=== PATIENT | female | born 1965 | race Hispanic/Latino ===

== ENCOUNTER 2023-12-22 08:11 | Day surgery (SDC) | payer OTHER ==
[~2023-12-22] VITALS: Ht 165.1 cm; Wt 81.6 kg
[2023-12-22] VITALS (11 sets, daily range): BP systolic 103–142; BP diastolic 57–81; PULSE 64–77; RESP 14–17
[~2023-12-22 08:11] MED LIST: DICL25TA12 PO; HYDR25TA PO; METF-891 PO; OMEP40CA21 PO; TIRZ10PE SQ
[2023-12-22] MEDS: 0.9%NACL 1000ML 1,000 ML IV ONE (09:04)
[2023-12-22] MEDS ORDERED: PROPOFOL 10 MG/ML 20ML VIAL IV ONE (10:47)
== END 2023-12-22 12:35 | disposition home or self-care (01) ==
LOC: ENDO 08:11 → DAH 08:11 → ENDO 12:35
PROVIDERS: ATTEND Internal Medicine Gastroenterology
DX: Z12.11 Encounter for screening for malignant neoplasm of colon (principal); K63.5 Polyp of colon; K63.89 Other specified diseases of intestine; D17.5 Benign lipomatous neoplasm of intra-abdominal organs; K29.70 Gastritis, unspecified, without bleeding; R10.11 Right upper quadrant pain; R12 Heartburn; K80.20 Calculus of gallbladder without cholecystitis without obstruction; K76.0 Fatty (change of) liver, not elsewhere classified; R94.5 Abnormal results of liver function studies; E11.9 Type 2 diabetes mellitus without complications; E66.01 Morbid (severe) obesity due to excess calories; Z68.30 Body mass index [BMI] 30.0-30.9, adult; Z80.9 Family history of malignant neoplasm, unspecified; Z83.3 Family history of diabetes mellitus; Z79.1 Long term (current) use of non-steroidal anti-inflammatories (NSAID); Z79.84 Long term (current) use of oral hypoglycemic drugs; Z98.891 History of uterine scar from previous surgery; Z98.890 Other specified postprocedural states
CPT/HCPCS: 81025; 45380; 43239; 82948 ×2; J7030; J2704; A4620; A4215 ×2; A4223; A4222; A4221; A4663; A4606; J3490

== ENCOUNTER 2024-01-11 07:32 | Day surgery (SDC) | payer OTHER ==
[2024-01-11] VITALS (10 sets, daily range): BP systolic 110–135; BP diastolic 47–79; PULSE 64–79; RESP 15–18
[~2024-01-11] VITALS: Ht 154.9 cm; Wt 124.3 kg
[2024-01-11] MEDS ORDERED: CHLO25TA3 PO (08:00)
[2024-01-11] MEDS: 0.9%NACL 1000ML 1,000 ML IV ONE (08:16)
[2024-01-11] MEDS ORDERED: PROPOFOL 10 MG/ML 20ML VIAL IV ONE ×4 (08:39→09:21)
[2024-01-11] MEDS ORDERED: EPHEDRINE SULFATE 50 MG/ML AMPULE ONE (09:24)
[2024-01-11] MEDS ORDERED: PHENYLEPHRINE HCL 10 MG/ML 1ML VIAL IV ONE (09:24)
== END 2024-01-11 10:30 | disposition home or self-care (01) ==
LOC: SUH 07:32 → DAH 07:32 → SUH 10:30
PROVIDERS: ATTEND Internal Medicine Gastroenterology
DX: R12 Heartburn (principal); K22.2 Esophageal obstruction; K22.89 Other specified disease of esophagus; K22.81 Esophageal polyp; E11.9 Type 2 diabetes mellitus without complications; K29.40 Chronic atrophic gastritis without bleeding; K80.20 Calculus of gallbladder without cholecystitis without obstruction; E66.01 Morbid (severe) obesity due to excess calories; D12.2 Benign neoplasm of ascending colon; D17.5 Benign lipomatous neoplasm of intra-abdominal organs; R94.5 Abnormal results of liver function studies; Z96.653 Presence of artificial knee joint, bilateral; Z79.899 Other long term (current) drug therapy; Z68.43 Body mass index [BMI] 50.0-59.9, adult
CPT/HCPCS: 81025; 43259; 82948 ×2; J7030; J3490; J2704 ×3; J2371; A4620; A4215 ×2; A4223; A4222; A4221; A4663; A4606